=== PATIENT | male | born 1960 | race Caucasian/White ===

== ENCOUNTER 2019-07-05 16:50 | Outpatient (CLI) | payer MEDICAID, SELFPAY | END 2019-07-05 16:51 | disposition home or self-care (01) | LOC: SPT 16:51 | PROVIDERS: Visit Provider Orthopaedic Surgery | DX: Z46.89 Encounter for fitting and adjustment of other specified devices (principal); S52.531D Colles' fracture of right radius, subsequent encounter for closed fracture with routine healing; X58.XXXD Exposure to other specified factors, subsequent encounter | CPT/HCPCS: L3982 ==

== ENCOUNTER → 2019-08-02 15:23 | Outpatient (BNVA) | payer MEDICAID, SELFPAY | PROVIDERS: Visit Provider Orthopaedic Surgery | DX: S52.531A Colles' fracture of right radius, initial encounter for closed fracture (principal); X58.XXXA Exposure to other specified factors, initial encounter | CPT/HCPCS: 73110 ==

== ENCOUNTER → 2019-11-07 11:28 | Outpatient (BNVA) | payer MEDICAID, SELFPAY | PROVIDERS: Visit Provider Orthopaedic Surgery | DX: S52.531A Colles' fracture of right radius, initial encounter for closed fracture (principal); X58.XXXA Exposure to other specified factors, initial encounter | CPT/HCPCS: 73110 ==

== ENCOUNTER → 2022-01-13 11:02 | Outpatient (BNVA) | payer MEDICAID, SELFPAY | PROVIDERS: Referring Provider Family Medicine; Visit Provider Podiatrist Foot & Ankle Surgery | DX: S92.501A Displaced unspecified fracture of right lesser toe(s), initial encounter for closed fracture (principal); W22.8XXA Striking against or struck by other objects, initial encounter | CPT/HCPCS: 99203; 99204 ==

== ENCOUNTER 2023-05-22 11:16 | Inpatient (IN) | payer OTHER, SELFPAY ==
[2023-05-22] VITALS (11 sets, daily range): BP systolic 101–125; BP diastolic 67–86; PULSE 80–102; RESP 17–26; TEMP 36.5–36.7; O2SAT 88–95
[2023-05-22 11:26] LABS: Glucose Point of Care 516 mg/dL (70-110)
--- NOTE | 2023-05-22 11:27 | XRR_ITS ---
PROCEDURE INFORMATION: Exam: XR Chest Exam date and time: 05/22/2023 12:43 PM Age: 63 years old Clinical indication: Cough TECHNIQUE: Imaging protocol: Radiologic exam of the chest. Views: 1 view. COMPARISON: No relevant prior studies available. FINDINGS: Lungs: Poor inspiratory effort. No focal consolidation. Pleural spaces: Small bilateral pleural effusions. Heart/Mediastinum: Unremarkable. No cardiomegaly. Bones/joints: Moderate degenerative disease of the left acromioclavicular joint. XR/XR chest 1V portable [id number] IMPRESSION: Poor inspiratory effort with no gross consolidations. Small bilateral pleural effusion.
--- NOTE | 2023-05-22 11:30 | ED_ITS ---
HPI - General Adult 2 General: Chief complaint: General Medical Stated complaint: HYPERGLYCEMIA Time Seen by Provider: 05/22/23 11:17 Source: patient and EMS Mode of arrival: EMS Limitations: no limitations History of Present Illness: 63-year-old male who states he was recen tly diagnosed diabetic he has not been able to start his meds he states that he is not feeling well today he been having some vomiting and fatigue. Blood sugar is over 500. He denies any chest pain he has COPD and states he had a chronic cough no change. Associated symptoms: Reports dyspnea and nausea; Deny chest pain, headache(s) or rash Review of Systems 2 Const: Denies: fever(s) or chills Eyes: Denies: blurry vision or eye discomfort ENMT: Denies: throat pain or dental pain Card: Denies: chest pain Resp: Reports: dyspnea GI: Reports: nausea; Denies: abdominal pain or diarrhea Musc: Denies: neck pain or back pain Skin/Breast: Denies: rash Neuro: Denies: headache(s) PFSH ED 2 PFSH: Medical History (Updated 05/22/23 @ 13:13 by Fritz Nash MD) HIV positive Depression Anxiety PTSD (post-traumatic stress disorder) Surgical History History of hip replacement Head of Femur Replaced Family History Denies family history of Anesthesia complication Bleeding disorder Social History Smoking and tobacco/nicotine status: current every day tobacco/nicotine user Physical Exam 2 Const: COMMON NORMALS: patient oriented x3 GENERAL APPEARANCE: ill appearing HENMT: COMMON NORMALS: normocephalic and atraumatic HEAD & SCALP: n ormocephalic and atraumatic Neck/C-Spine: COMMON NORMALS: full ROM and supple Chest: COMMONS NORMALS: normal inspection of the chest and normal palpation of entire chest wall Resp: COMMON NORMALS: normal respiratory effort, No retractions, No use of accessory muscles and clear to auscultation bilaterally AUSCULTATION: clear to auscultation bilaterally Cardio: COMMON NORMALS: regular rate, regular rhythm and No murmurs present (Cardio) RATE: regular rate RHYTHM: regular rhythm GI: COMMON NORMALS: Normal to inspection, nondistended, normoactive bowel sounds present, Soft to palpation, non-tender and no masses PALPATION: Yes Soft to palpation Extremity: COMMON NORMALS: normal to inspection and full ROM Neuro: COMMON NORMALS: patient oriented x3, moves all extremities and no focal motor deficits Psych: COMMON NORMALS: mental status grossly normal, Normal thought process present and cooperative THOUGHT PROCESS: Normal thought process present Skin: COMMON NORMALS: no rashes or lesions noted and no wounds GENERAL SKIN EXAM: no rashes or lesions noted Course 2 Vital Signs: Vital signs: Vital Signs Temperature 97.8 F 05/22/23 12:29 Pulse Rate 96 05/22/23 11:59 Respiratory Rate 26 H 05/22/23 11:29 Blood Pressure 125/86 05/22/23 11:29 Pulse Oximetry 88 L 05/22/23 11:59 Oxygen Delivery Me thod Nasal Cannula 05/22/23 11:59 Oxygen Flow Rate 3 05/22/23 11:59 [facility] - General Adult Medical Decision Making Patient presents here with hyperglycemia he is a new onset diabetic he also is hypokalemic potassium is 2.4 his have replaced his potassium with p.o. and IV potassium. He has a history of COPD he is requiring 3 L of oxygen here he does not wear oxygen at home x-ray shows no pneumonia spoke to hospitalist will admit Medical Records I reviewed the patient's medical records. Lab Data I reviewed the patient's lab results. 05/22/23 11:22 05/22/23 11:22 Laboratory Results WBC 3.68 10^3/uL (3.29-11.43) 05/22/23 11:22 RBC 4.87 10^6/uL (3.85-5.65) 05/22/23 11:22 Hgb 15.00 g/dL (11.27-16.99) 05/22/23 11:22 Hct 40.4 % (37-53) 05/22/23 11:22 MCV 83.0 fl (82-101) 05/22/23 11:22 MCH 30.8 pg (27-33) 05/22/23 11:22 MCHC 37.1 g/dL (30-55) 05/22/23 11:22 RDW 11.8 % (12.1-15.1) L 05/22/23 11:22 Plt Count 101 10^3/cmm (157-399) L 05/22/23 11:22 MPV 12.1 fL (7.4-10.4) H 05/22/23 11:22 Neut % (Auto) 85.6 % 05/22/23 11:22 Lymph % (Auto) 6.3 % 05/22/23 11:22 Luce % (Auto) 5.4 % 05/22/23 11:22 Eos % (Auto) 0.3 % 05/22/23 11:22 Baso % (Auto) 0.5 % 05/22/23 11:22 Neut # (Auto) 3.15 10^3/uL (1.8-7.7) 05/22/23 11:22 Lymph # (Auto) 0.2 10^3/uL (0.8-4.8) L 05/22/23 11:22 Luce # (Auto) 0.2 10^3/uL (0.2-0.9) 05/22/23 11:22 Eos # (Auto) 0.0 10^3/uL (0.0-0.8) 05/22/23 11:22 Baso # (Auto) 0.0 10^3/uL (0.0-0.1) 05/22/23 11:22 Nucleated RBC % (auto) 0 % 05/22/23 11:22 Nucleated RBCs # 0.0 /100WBC 05/22/23 11:22 Specimen Type Arterial 05/22/23 11:48 Sample Site Radial, left 05/22/23 11:48 ABG pH 7.47 (7.35-7.45) H 05/22/23 11:48 ABG pCO2 42.2 mmHg (35-45) 05/22/23 11:48 ABG pO2 50.8 mmHg (80.0-100.0) L 05/22/23 11:48 ABG PO2/FiO2 Ratio 0 05/22/23 11:48 ABG HCO3 30.7 mmol/L (22-26) H 05/22/23 11:48 ABG Base Excess 6.3 mmol/L (-2.0-2.0) H 05/22/23 11:48 Alec Test Pos 05/22/23 11:48 Hematocrit 43.3 % (42-52) 05/22/23 11:48 O2 Delivery Device Room air 05/22/23 11:48 FiO2 21.0 % 05/22/23 11:48 Skills Auditor ID Maria Luisa 05/22/23 11:48 Sodium 125 mmol/L (136-145) L 05/22/23 11:22 Potassium 2.4 mmol/L (3.5-5.1) L* 05/22/23 11:22 Chloride 81 mmol/L (98-107) L 05/22/23 11:22 Carbon Dioxide 28 mmol/L (22-29) 05/22/23 11:22 Anion Gap 18.4 (5-19) 05/22/23 11:22 BUN 21 mg/dL (8-23) 05/22/23 11:22 Creatinine 1.3 mg/dL (0.7-1.2) H 05/22/23 11:22 GFR Calculation 56.1 mL/min (90-130) L 05/22/23 11:22 Glucose 501 mg/dL (65-115) H* 05/22/23 11:22 POC Glucose 277 mg/dL (70-110) H 05/22/23 12:26 Calculated Osmolality 285 mOsm/kg (285-295) 05/22/23 11:22 Calcium 8.1 mg/dL (8.5-10.5) L 05/22/23 11:22 Total Bilirubin 1.9 mg/dL (0.15-1.2) H 05/22/23 11:22 AST 37 U/L (0-40) 05/22/23 11:22 ALT 53 U/L (0-41) H 05/22/23 11:22 Alkaline Phosphatase 216 U/L (40-130) H 05/22/23 11:22 Total Protein 6.7 g/dL (6.6-8.7) 05/22/23 11:22 Albumin 3.5 g/dL (3.5-5.2) 05/22/23 11:22 Globulin 3.2 g/dL (1.3-4.6) 05/22/23 11:22 Lipase 17 U/L (13-60) 05/22/23 11:22 All radiology interpretation(s) finalized by discharge Discharge Plan Discharge Patient Disposition: Admitted As Inpatient Clinical Impression: Hypokalemia, Hyperglycemia, Acute respiratory failure with hypoxia Condition: Stable Prescriptions: No Action Biktarvy 50-200-25 mg tablet 1 tab PO QAM omeprazole 40 mg capsule,delayed release(DR/EC) 40 mg PO QAM (DME) Fast Form cock up splint Qty: 1 0RF Rx Instructions: As directed atorvastatin 80 mg tablet 80 mg PO BEDTIME clopidogrel 75 mg tablet 75 mg PO QAM Tylenol Ex Str Rapid Release 500 mg Tablet 1,000 mg PO Q6H PRN (Reason: Pain) amlodipine 10 mg tablet 10 mg PO QAM aspirin 81 mg tablet,chewable 81 mg PO QAM hydrochlorothiazide 25 mg tablet 25 mg PO QAM colchicine 0.6 mg tablet 0.6 mg PO . DIRECTED metformin 500 mg tablet extended release 24 hr 500 mg PO DAILY Rx Instructions: not started as of 05/22/23 Stiolto Respimat 2.5-2.5 mcg/actuation mist 2 puff INHALATION BEDTIME Coding Level of Care Code ED [address] Service for Mykel Rodriguez
[2023-05-22] MEDS: insulin regular-human 100 units/1 mL 10 UNIT IVP (11:37)
[2023-05-22 11:40] LABS: Basophils % 0.5 %; Eosinophils % 0.3 %; Hematocrit 40.4 % (37-53); Lymphocytes # 0.2 10^3/uL (0.8-4.8); Lymphocytes % 6.3 %; Mean Corpuscular HGB Conc 37.1 g/dL (30-55); Mean Corpuscular Hemoglobin 30.8 pg (27-33); Mean Platelet Volume 12.1 fL (7.4-10.4); Monocytes # 0.2 10^3/uL (0.2-0.9); Monocytes % 5.4 %; Neutrophils # 3.15 10^3/uL (1.8-7.7); Neutrophils % 85.6 %; Nucleated Red Blood Cells % 0 %; Platelet Count 101 10^3/cmm (157-399); Red Blood Count 4.87 10^6/uL (3.85-5.65); Red Cell Distribution Width 11.8 % (12.1-15.1); White Blood Count 3.68 10^3/uL (3.29-11.43)
[2023-05-22 11:51] LABS: Alanine Aminotransferase 53 U/L (0-41); Albumin Level 3.5 g/dL (3.5-5.2); Alkaline Phosphatase 216 U/L (40-130); Anion Gap 18.4 (5-19); Aspartate Amino Transferase 37 U/L (0-40); Blood Urea Nitrogen 21 mg/dL (8-23); Calcium 8.1 mg/dL (8.5-10.5); Carbon Dioxide 28 mmol/L (22-29); Chloride 81 mmol/L (98-107); Globulin 3.2 g/dL (1.3-4.6); Glomerular Filtration Rate 56.1 mL/min (90-130); Lipase 17 U/L (13-60); Osmolality Calculated 285 mOsm/kg (285-295); Sodium 125 mmol/L (136-145); Total Bilirubin 1.9 mg/dL (0.15-1.2); Total Protein 6.7 g/dL (6.6-8.7)
[2023-05-22 11:52] LABS: Creatinine Clr Calc Pharmacy 72.2215
[2023-05-22 11:54] LABS: Glucose 501 mg/dL (65-115); Potassium 2.4 mmol/L (3.5-5.1)
[2023-05-22 11:59] LABS: ABG PCO2 42.2 mmHg (35-45); ABG PH Result 7.47 (7.35-7.45); Arterial Blood Gas Hematocrit 43.3 % (42-52); Base Excess ABG 6.3 mmol/L (-2.0-2.0); Blood Gas Allen Test Pos; Blood Gas Operator Identificat WALCI; Blood Gas Sample Site Radial, left; Blood Gas Sample Type Arterial; HCO3 ABG 30.7 mmol/L (22-26); Oxygen Device ROOM AIR; PO2 ABG 50.8 mmHg (80.0-100.0); PO2 FiO2 Ratio Arterial Blood 0
[2023-05-22] MEDS: potassium chloride ER 20 mEq Tablet 60 MEQ PO (12:21)
[2023-05-22 12:30] LABS: Glucose Point of Care 277 mg/dL (70-110)
--- NOTE | 2023-05-22 12:46 | PC.PHAR ---
pt states he takes care of his own medications-pt states he hasnt started taking metformin er 500mg daily ext shows filled 05/18/23 90d/s-pt states he hasnt gotten the colchicine 0.6mg filled 05/20/23 12d/s states there was problems with the insurance-pt states he is still using the stiolto respimat ext shows last filled 03/08/23 30d/s-
[2023-05-22] MEDS: potassium phosphate (mEq K) 40 MEQ in sodium chloride 0.9% (100 ml) 100 ML 27.2699999999999996 MEQ IV (12:50)
--- NOTE | 2023-05-22 13:06 | P.HP_ITS ---
Providers/Chief Complaint 2 Primary Care Provider: Hedy Lopez Chief Complaint: HYPERGLYCEMIA History of Present Illness Francisco Barlow is a 63 year old male who was recently diagnosed with diabetes, a day ago at [facility], patient stating that [place], he has not received his antihyperglycemic medication yet, presented to the hospital because he was experiencing recurrent nausea vomiting generalized fatigue and malaise. Because excessive vomiting he is starting to get cramps in his abdominal area, is also experiencing pleuritic pain, pain which gets worse on coughing. Smokes 1 pack/day, drinks alcohol 1 drink a day, patient stating that he has history of aortic aneurysm follows up at [facility], his PCP is Dr. Lopez In the ER he has been diagnosed with max, severe hypokalemia, hyperglycemia, hyponatremia, patient has unkept appearance, foul-smelling room, his last shower was a week ago, Review of Systems 2 Const: Denies: fever(s) Eyes: Denies: change in vision ENMT: Denies: throat pain Card: Denies: chest pain Resp: Denies: dyspnea GI: Denies: abdominal pain : Denies: flank pain Musc: Denies: neck pain Skin/Breast: Denies: rash Neuro: Denies: headache(s) Psych: Denies: anxiety Endo: Denies: polyuria Parveen/Lymph: Denies: easy bruising All/Imm: Denies: urticaria Medications/Allergies Home Medications Medication Instructions Recorded Confirmed Last Taken Type Fast Form cock up splint #1 ea 07/05/19 05/22/23 Unknown Rx bictegravir 50 mg-emtricitabine 1 tab PO QAM 10/03/19 05/22/23 05/20/23 History 200 mg-tenofovir alafenam 25 mg tablet (Biktarvy) omeprazole 40 mg capsule,delayed 40 mg PO QAM 10/03/19 05/22/23 05/20/23 History release acetaminophen 500 mg tablet 1,000 mg PO Q6H PRN Pain 05/22/23 05/22/23 Unknown History amlodipine 10 mg tablet 10 mg PO QAM 05/22/23 05/22/23 05/20/23 History aspirin 81 mg chewable tablet 81 mg PO QAM 05/22/23 05/22/23 05/20/23 History atorvastatin 80 mg tablet 80 mg PO BEDTIME 05/22/23 05/22/23 05/20/23 History clopidogrel 75 mg tablet 75 mg PO QAM 05/22/23 05/22/23 05/20/23 History colchicine 0.6 mg tablet 0.6 mg PO . DIRECTED 05/22/23 05/22/23 Unknown History hydrochlorothiazide 25 mg tablet 25 mg PO QAM 05/22/23 05/22/23 05/20/23 History metformin 500 mg tablet,extended 500 mg PO DAILY 05/22/23 05/22/23 Unknown History release 24 hr tiotropium 2.5 mcg-olodaterol 2.5 2 puff inhalation BEDTIME 05/22/23 05/22/23 Unknown History mcg/actuation mist for inhalation (Stiolto Respimat) Allergies Allergy/AdvReac Type Severity Reaction Status Date / Time iodine Allergy Severe Anaphylaxis Verified 01/13/22 11:15 PFSH Acute 2 PFSH: Medical History (Updated 05/22/23 @ 13:38 by Gentry Avila MD) HIV positive Depression Anxiety PTSD (post-traumatic stress disorder) Surgical History History of hip replacement Head of Femur Replaced Family History Denies family history of Anesthesia complication Bleeding disorder Social History Smoking and tobacco/nicotine status: current every day tobacco/nicotine user Vitals/I&O/Wt Last Vital Signs Temp 97.8 F 05/22/23 12:29 Pulse 96 05/22/23 11:59 Resp 26 H 05/22/23 11:29 BP 125/86 05/22/23 11:29 Pulse Ox 88 L 05/22/23 11:59 O2 Del Method Nasal Cannula 05/22/23 11:59 O2 Flow Rate 3 05/22/23 11:59 Weight last 48 hrs Weight 97.522 kg Physical Exam 2 Narrative: Disabled appearance Unkept appearance Foul-smelling wound Patient is on 2 L nasal cannula Saturating 94% Abdomen distended, no active signs of peritonitis S1, S2 GCS 15 Nonfocal neuroexam Data 05/22/23 11:22 05/22/23 11:22 A&P Assessment and plan (1) Hyperglycemia: (2) GERD (gastroesophageal reflux disease): (3) Hypokalemia: (4) Hyponatremia: (5) Dehydration: (6) New onset of congestive heart failure: Plan Hyperglycemia without DKA Start IV fluids with potassium supplementation Severe hypokalemia: IV potassium given in the ER I will continue with IV fluids Check mag level Check B12 and TSH Check A1c level I will put him on medium dose sliding scale along Lantus 10 units When asked why he is on dual antiplatelet therapy he stated that he has aortic aneurysm follows up at [facility] Patient is stating that he lives off grid in a cabin, Hopefully I will be able to discharge him by tomorrow once blood sugar and potassium is well-controlled Pseudohyponatremia related to hyperglycemia No active acidosis or high anion gap Acute hypoxia most likely new onset CHF, will request BNP and echo will hold off giving Lasix secondary to severely low potassium Recheck BMP for potassium level Full code Consistent carb diet Wean oxygen to room air Attestations 2 Medical Necessity Statement*: Than 2 midnights anticipated for management of new onset CHF, hyperglycemia, hyponatremia, hypokalemia Diagnoses Hyperglycemia R73.9 GERD (gastroesophageal reflux disease) K21.9 Hypokalemia E87.6 Hyponatremia E87.1 Dehydration E86.0 New onset of congestive heart failure I50.9
--- NOTE | 2023-05-22 13:21 | ECG_ITS ---
[facility] Test Date: 2023-05-22 Pat Name: Francisco Barlow Department: Room: Gender: Male Assistant Attorney General: : 1960 Requested By: Fritz Nash Order Number: [id number] Shilpa MD: Ramsey Mendoza M.D. Measurements Intervals [place] Rate: 87 P: 60 WV: 156 QRS: 9 QRSD: 94 T: 53 QT: 402 QTc: 486 Interpretive Statements SINUS RHYTHM No previous ECG available for comparison Electronically Signed On 05-23-2023 8:48:22 DRIVER ENGINEER by Ramsey Mendoza M.D. [id number]
[2023-05-22] MEDS: ipratropium-albuterol 3 mL Neb INHALATION (13:29)
[2023-05-22 14:00] LABS: Magnesium 1.5 mg/dL (1.7-2.3)
[2023-05-22 14:32] LABS: NT Pro B Type Natriuretic Pept 794 pg/mL (0-125)
--- NOTE | 2023-05-22 14:45 | ECG_ITS ---
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 Measurements Intervals [place] Rate: 87 P: 4 NV: 172 QRS: 1 QRSD: 92 T: 30 QT: 410 QTc: 494 Interpretive Statements SINUS RHYTHM Compared to ECG 05/22/2023 13:21:35 No significant changes Electronically Signed On 05-23-2023 9:36:51 DIRECTOR ENVIRONMENTAL by Ramsey Mendoza M.D. [id number]
[2023-05-22 15:44] LABS: Thyroid Stimulating Hormone 3.93 uIU/mL (0.27-4.20); Vitamin B12 652 pg/mL (232-1245)
[2023-05-22 16:04] LABS: Estmated Average Glucose 283; Hemoglobin A1C 11.5 % (4.0-6.0)
[2023-05-22 16:32] LABS: Glucose Point of Care 459 mg/dL (70-110)
[2023-05-22] MEDS: NON-FORMULARY MEDICATION (Bictegrav-Emtricit-Tenofov Ala [Biktarvy] 50-200-25 mg tablet) 1 EACH PO (18:03)
[2023-05-22] MEDS: insulin lispro 100 unit/1 mL SUBCUT ×2 (18:04→22:08)
[2023-05-22] MEDS: atorvastatin 40 mg Tablet 80 MG PO (20:07)
[2023-05-22] MEDS: acetaminophen 500 mg Tablet PO (20:07)
[2023-05-22] MEDS: insulin glargine 100 units/1 mL 10 UNIT SUBCUT (20:39)
[2023-05-22 20:43] LABS: Glucose Point of Care 504 mg/dL (70-110)
[2023-05-22] MEDS: morphine 4 mg/mL SDV 1 mL 2 MG IVP (21:31)
[2023-05-22] MEDS: magnesium sulfate premix 2 GM/50 ML PIGGYBACK IV (21:31)
[2023-05-22] MEDS: pantoprazole 40 mg SDV IVP (21:31)
[2023-05-22 22:00] LABS: Glucose Point of Care 480 mg/dL (70-110)
[2023-05-23] VITALS (11 sets, daily range): BP systolic 99–143; BP diastolic 66–89; PULSE 68–88; RESP 16–20; TEMP 36.6–36.8; O2SAT 87–94
[2023-05-23 03:27] LABS: Basophils % 0.5 %; Eosinophils # 0.1 10^3/uL (0.0-0.8); Eosinophils % 2.1 %; Hematocrit 36.9 % (37-53); Lymphocytes # 0.9 10^3/uL (0.8-4.8); Lymphocytes % 15.5 %; Mean Corpuscular HGB Conc 34.7 g/dL (30-55); Mean Corpuscular Hemoglobin 30.2 pg (27-33); Mean Platelet Volume 12.5 fL (7.4-10.4); Monocytes # 0.7 10^3/uL (0.2-0.9); Monocytes % 12.7 %; Neutrophils # 3.91 10^3/uL (1.8-7.7); Neutrophils % 68.3 %; Nucleated Red Blood Cells % 0 %; Platelet Count 73 10^3/cmm (157-399); Red Blood Count 4.24 10^6/uL (3.85-5.65); Red Cell Distribution Width 12.2 % (12.1-15.1); White Blood Count 5.73 10^3/uL (3.29-11.43)
[2023-05-23 03:45] LABS: Blood Urea Nitrogen 23 mg/dL (8-23); Calcium 7.6 mg/dL (8.5-10.5); Carbon Dioxide 31 mmol/L (22-29); Chloride 92 mmol/L (98-107); Glucose 247 mg/dL (65-115); Magnesium 2.3 mg/dL (1.7-2.3); Osmolality Calculated 282 mOsm/kg (285-295); Phosphorus 1.2 mg/dL (2.5-4.5); Sodium 130 mmol/L (136-145)
[2023-05-23 03:49] LABS: Anion Gap 9.8 (5-19)
[2023-05-23 03:51] LABS: Potassium 2.8 mmol/L (3.5-5.1)
--- NOTE | 2023-05-23 04:52 | PC.NURSE ---
Contacted Dr. Griffin regarding order for K+ phosphate, and unavailability to administer until pharmacy gets here to mix the iv. Physician stated it would be ok to await pharmacy arrival to mix K+ phosphate, and to administer PO K+ at this time. supervisor laboratory notified.
[2023-05-23] MEDS: NON-FORMULARY MEDICATION (Bictegrav-Emtricit-Tenofov Ala [Biktarvy] 50-200-25 mg tablet) 1 EACH PO (05:46)
[2023-05-23] MEDS: potassium chloride ER 20 mEq Tablet 40 MEQ PO ×2 (05:47→17:32)
[2023-05-23] MEDS: aspirin 81 mg Chew Tablet PO (05:47)
--- NOTE | 2023-05-23 06:00 | USCV_ITS ---
Francisco Barlow Age: 63 Gender: M : 1960 Exam Date: 05/23/2023 17:56 Ordering Phys: Gentry Avila MD Technologist: JUSTICE [place] [facility] [place]: order says CHF No history of cardiac intervention per patient. Long-term smoker, continues smoking. BP: 143 / 89 HR: 74 Rhythm: Sinus Technical Quality: Adequate MEASUREMENTS (Male / Female) Normal Values 2D ECHO LV Diastolic Diameter PLAX 4.3 cm 4.2 - 5.9 / 3.9 - 5.3 cm IVS Diastolic Thickness 2.1 cm 0.6 - 1.0 / 0.6 - 0.9 cm IVS Systolic Thickness 2.6 cm LVPW Diastolic Thickness 1.6 cm 0.6 - 1.0 / 0.6 - 0.9 cm LVPW Systolic Thickness 1.8 cm LVOT Diameter 2.0 cm LV Ejection Fraction 2D Teich 76.2 % LV Ejection Fraction MOD 2C 73.3 % LV Ejection Fraction 2C AL 0.0 % LA Diameter 3.0 cm Aorta at Sinotubular Diameter 2.6 cm IVC Diameter 2.6 cm M-MODE LA Ao Ratio MM 0.8 AV Cusp Separation MM 2.0 cm DOPPLER AV Peak Velocity 126.0 cm/s LVOT Peak Velocity 109.0 cm/s AV Area Cont Eq vti 4.0 cm squared AV Area Cont Eq pk 2.9 cm squared MV Peak Velocity 99.0 cm/s MV Area PHT 6.2 cm squared Mitral E to A Ratio 0.8 TV Peak E Velocity 39.0 cm/s PV Peak Velocity 92.0 cm/s FINDINGS Left Ventricle Normal left ventricular size and systolic function, EF 76%.no regional wall motion abnormalities. Mild left ventricular hypertrophy. Grade I/IV diastolic dysfunction (abnormal relaxation filling pattern), normal to mildly elevated filling pressures. Right Ventricle The right ventricle is normal in size and function. Right Atrium The right atrium is normal in size. Left Atrium The left atrium is normal in size. Mitral Valve No gross abnormalities noted Aortic Valve No gross abnormalities noted Tricuspid Valve No gross abnormalities noted Pulmonic Valve No gross abnormalities noted Pericardium Normal pericardium without effusion. Aorta Normal ascending aorta dimension. IVC The inferior vena cava appears normal. CONCLUSIONS Normal left ventricular size and systolic function, EF 76%.no regional wall motion abnormalities. Mild left ventricular hypertrophy. Grade I/IV diastolic dysfunction (abnormal relaxation filling pattern), normal to mildly elevated filling pressures. Normal cardiac chamber sizes. No significant valvular abnormalities. There is no pericardial effusion. There are no intracardiac masses. No similar previous studies are available for comparison Dr Linda Alvares MD FACC (Electronically Signed) Final Date: 23 May 2023 20:14 S
[2023-05-23 06:19] LABS: Glucose Point of Care 407 mg/dL (70-110)
[2023-05-23] MEDS: potassium phosphate (mEq K) 40 MEQ in sodium chloride 0.9% (100 ml) 100 ML 27.2699999999999996 MEQ IV (07:05)
[2023-05-23] MEDS: insulin lispro 100 unit/1 mL SUBCUT ×4 (07:49→21:16)
[2023-05-23] MEDS: pantoprazole 40 mg SDV IVP (08:55)
[2023-05-23 09:23] LABS: Creatine Phosphokinase 259 U/L (39-308)
[2023-05-23 09:33] LABS: Potassium 2.8 mmol/L (3.5-5.1)
[2023-05-23] MEDS: acetaminophen 500 mg Tablet PO ×2 (10:41→20:18)
[2023-05-23 11:21] LABS: Glucose Point of Care 256 mg/dL (70-110)
--- NOTE | 2023-05-23 11:33 | PC.CHAP ---
Pastoral Care Encounter/Spiritual Assessment Type of Contact [] Declined airport ramp supervisor visit [] Patient/Family/Request visit [] Outpatient visit [] Follow-up visit [] Physician referral [] Code/Alert [x] Routine visit [] Staff referral [] Actively dying [x] Patient sleeping [] Family support [] [] Out of room [] Palliative care [] [] Receiving care in room [] Pre-surgical visit [] Trauma [] Long length of stay [] ICU visit [] Other: Relational/Emotional Strength [] Patient feels connected with others/family/visitors/staff [] Distress [] Loneliness/isolation [] Abandonment Spirituality of Patient [] Person of Jennifer [] Attends Latter-Day of their Jennifer [] Believes in Prayer [] Reads Bible or Hindu materials [] There are Spiritual issues to be addressed Video Machines Mechanic Interventions [x] Prayer [] Active listening [] Non-anxious presence [] Spiritual/emotional support [] Crisis/trauma care [] Spiritual counseling [] Bereavement support [] Provided bereavement packet [] Provided Bible/devotional materials [] Provided toy/stuffed animal, coloring book to patient or family member [] Provided Communion [] Anointing/[place] [] Salvation [x] Completed spiritual assessment [] Other: Impact on Illness or Injury [] Angry [] Fearful [] Anxious [] Often cries [] Exhaustion [] Unable to work [] Unable to attend holiness [] Unable to walk/stand [] Unable to read [] Unable to drive [] Unable to eat/drink [] Unable to sleep [] Unable to be with family [] Patient intubated [] Other: Summary Time spent with patient none
--- NOTE | 2023-05-23 12:09 | P.PN_ITS ---
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 updated Will do meds to beds Will wait for echo report Vitals/I&O/Wt Last Vital Signs Temp 98.2 F 05/23/23 11:47 Pulse 74 05/23/23 11:47 Resp 16 05/23/23 11:47 BP 101/67 05/23/23 11:47 Pulse Ox 91 05/23/23 11:47 O2 Del Method Room Air 05/23/23 11:47 O2 Flow Rate 3 05/22/23 15:35 05/22/23 05/23/23 05/23/23 22:59 06:59 14:59 Intake Total 398.5106 / 398.5106 200 / 598.5106 480 / 480 Output Total 600 / 600 350 / 950 Balance -201.4894 / -201.4894 -150 / -351.4894 480 / 480 Weight last 48 hrs Weight 96.162 kg Weight 97.522 kg Physical Exam 2 Narrative: Clinical signs of fluid overload Distended abdomen no severe signs of peritonitis Hypogastric region tenderness on deep palpation Awake and alert S1, S2 Currently on room air Hemodynamically stable Signs of fluid overload present Unkept appearance Data 05/23/23 02:31 05/23/23 08:47 A&P Assessment and plan (1) New onset of congestive heart failure: (2) Hyperglycemia: (3) GERD (gastroesophageal reflux disease): (4) Hypokalemia: (5) Dehydration: (6) New onset type 2 diabetes mellitus: Plan New onset diabetes we will add Lantus and medium sliding scale Will increase the dose of Lantus to 20 units Hemoglobin A1c above 10 New onset CHF Echo report is pending Further plan will be made after reviewing echo report Continue Lasix Severe electrolyte imbalance Hypomagnesemia hypophosphatemia Replenished via IV Monitor for refeeding syndrome: No significant CPK elevation Severe hypokalemia along phosphorus replenished today Magnesium is normal Normal B12 and TSH No active chest pain Patient is HIV positive continue medications Hyponatremia: Patient is fluid overloaded, drinks alcohol, discontinue hydrochlorothiazide from home medications Full code Attestations 2 Medical Necessity Statement*: Plan to discharge in next 24 to 48 hours for the plan will be made after reviewing echo report Diagnoses New onset of congestive heart failure I50.9 Hyperglycemia R73.9 GERD (gastroesophageal reflux disease) K21.9 Hypokalemia E87.6 Dehydration E86.0 New onset type 2 diabetes mellitus E11.9
[2023-05-23] MEDS: FUROsemide 10 mg/mL SDV 2mL 20 MG IVP (13:53)
[2023-05-23 14:04] LABS: Alanine Aminotransferase 60 U/L (0-41); Albumin Level 2.9 g/dL (3.5-5.2); Alkaline Phosphatase 103 U/L (40-130); Aspartate Amino Transferase 61 U/L (0-40); Blood Urea Nitrogen 21 mg/dL (8-23); Calcium 7.5 mg/dL (8.5-10.5); Carbon Dioxide 29 mmol/L (22-29); Chloride 96 mmol/L (98-107); Creatinine Clr Calc Pharmacy 84.8101; Globulin 2.7 g/dL (1.3-4.6); Glomerular Filtration Rate 68.1 mL/min (90-130); Glucose 310 mg/dL (65-115); Osmolality Calculated 297 mOsm/kg (285-295); Sodium 136 mmol/L (136-145); Total Bilirubin 0.9 mg/dL (0.15-1.2); Total Protein 5.6 g/dL (6.6-8.7)
[2023-05-23 16:47] LABS: Glucose Point of Care 294 mg/dL (70-110)
[2023-05-23 20:59] LABS: Glucose Point of Care 256 mg/dL (70-110)
[2023-05-23] MEDS: insulin glargine 100 units/1 mL 20 UNIT SUBCUT (21:15)
[2023-05-23] MEDS: atorvastatin 40 mg Tablet 80 MG PO (21:16)
[2023-05-24 00:41] VITALS: BP 100/68; PULSE 75; RESP 19; TEMP 36.8; O2SAT 91
[2023-05-24 03:54] VITALS: BP 95/62; PULSE 79; RESP 18; TEMP 36.7; O2SAT 90
[2023-05-24] MEDS: aspirin 81 mg Chew Tablet PO (05:44)
[2023-05-24 06:00] VITALS: PULSE 81
[2023-05-24 06:04] LABS: Basophils % 0.8 %; Eosinophils # 0.1 10^3/uL (0.0-0.8); Eosinophils % 2.1 %; Hematocrit 36.9 % (37-53); Lymphocytes # 0.8 10^3/uL (0.8-4.8); Lymphocytes % 20.4 %; Mean Corpuscular HGB Conc 35.5 g/dL (30-55); Mean Corpuscular Hemoglobin 30.5 pg (27-33); Mean Platelet Volume 11.8 fL (7.4-10.4); Monocytes # 0.6 10^3/uL (0.2-0.9); Monocytes % 16.9 %; Neutrophils # 2.21 10^3/uL (1.8-7.7); Neutrophils % 59.3 %; Nucleated Red Blood Cells % 0 %; Platelet Count 115 10^3/cmm (157-399); Red Blood Count 4.29 10^6/uL (3.85-5.65); Red Cell Distribution Width 12.3 % (12.1-15.1); White Blood Count 3.73 10^3/uL (3.29-11.43)
[2023-05-24 06:22] LABS: Glucose Point of Care 234 mg/dL (70-110)
[2023-05-24 06:30] LABS: Slide Review Slide Review Perform
[2023-05-24 06:32] LABS: Magnesium 1.7 mg/dL (1.7-2.3); Phosphorus 2.3 mg/dL (2.5-4.5)
[2023-05-24 07:23] VITALS: BP 105/62; PULSE 68; RESP 18; O2SAT 93
[2023-05-24 07:43] VITALS: PULSE 68; RESP 18; O2SAT 93
[2023-05-24] MEDS: potassium chloride ER 20 mEq Tablet 40 MEQ PO (08:46)
[2023-05-24] MEDS: insulin lispro 100 unit/1 mL SUBCUT (08:46)
[2023-05-24] MEDS: pantoprazole 40 mg SDV IVP (08:46)
--- NOTE | 2023-05-24 10:50 | P.DS_ITS ---
Discharge Providers Date of Admission: 05/22/23 15:01 Date of Discharge: May 24, 2023 Attending Provider at Admission: Latisha Rabago MD Attending Provider at Discharge: Gentry Avila MD Primary Care Provider: Hedy Lopez Diagnoses at Discharge Discharge Diagnosis (1) New onset of congestive heart failure: Status: Acute (2) Hyperglycemia: Status: Acute (3) GERD (gastroesophageal reflux disease): Status: Acute (4) Hypokalemia: Status: Acute (5) Dehydration: Status: Acute (6) New onset type 2 diabetes mellitus: Status: Acute Reason for Visit Reason for Visit: HYPERGLYCEMIA Hospital Course Hospital Course 63-year male who presented to the hospital for hyperglycemia and generalized weakness and fatigue patient was diagnosed with diabetes recently 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 His symptoms improved, Will prescribe him all the medications to our pharmacy to avoid relapse in his medication, Physical Exam Narrative: Awake and alert GCS 15 Sign of fluid load improving Pleasant cooperative Abdomen distended but nontender Currently on room air Normotensive Discharge Data Studies Completed and Pending Completed Studies During Hospitalization Category Date Time Status XR chest 1V portable [id number] Stat Exams 05/22/23 11:27 Completed CV. echo complete* [id number] Routine Ultrasound 05/23/23 06:00 Completed Radiology Impressions Chest X-Ray 05/22/23 11:27 IMPRESSION: Poor inspiratory effort with no gross consolidations. Small bilateral pleural effusion. Laboratory Results WBC 3.73 10^3/uL (3.29-11.43) 05/24/23 05:10 RBC 4.29 10^6/uL (3.85-5.65) 05/24/23 05:10 Hgb 13.10 g/dL (11.27-16.99) 05/24/23 05:10 Hct 36.9 % (37-53) L 05/24/23 05:10 MCV 86.0 fl (82-101) 05/24/23 05:10 MCH 30.5 pg (27-33) 05/24/23 05:10 MCHC 35.5 g/dL (30-55) 05/24/23 05:10 RDW 12.3 % (12.1-15.1) 05/24/23 05:10 Plt Count 115 10^3/cmm (157-399) L D 05/24/23 05:10 MPV 11.8 fL (7.4-10.4) H 05/24/23 05:10 Neut % (Auto) 59.3 % 05/24/23 05:10 Lymph % (Auto) 20.4 % 05/24/23 05:10 [place] % (Auto) 16.9 % 05/24/23 05:10 Eos % (Auto) 2.1 % 05/24/23 05:10 Baso % (Auto) 0.8 % 05/24/23 05:10 Neut # (Auto) 2.21 10^3/uL (1.8-7.7) 05/24/23 05:10 Lymph # (Auto) 0.8 10^3/uL (0.8-4.8) 05/24/23 05:10 [place] # (Auto) 0.6 10^3/uL (0.2-0.9) 05/24/23 05:10 Eos # (Auto) 0.1 10^3/uL (0.0-0.8) 05/24/23 05:10 Baso # (Auto) 0.0 10^3/uL (0.0-0.1) 05/24/23 05:10 Nucleated RBC % (auto) 0 % 05/24/23 05:10 Nucleated RBCs # 0.0 /100WBC 05/24/23 05:10 Specimen Type Arterial 05/22/23 11:48 Sample Site Radial, left 05/22/23 11:48 ABG pH 7.47 (7.35-7.45) H 05/22/23 11:48 ABG pCO2 42.2 mmHg (35-45) 05/22/23 11:48 ABG pO2 50.8 mmHg (80.0-100.0) L 05/22/23 11:48 ABG PO2/FiO2 Ratio 0 05/22/23 11:48 ABG HCO3 30.7 mmol/L (22-26) H 05/22/23 11:48 ABG Base Excess 6.3 mmol/L (-2.0-2.0) H 05/22/23 11:48 Alec Test Pos 05/22/23 11:48 Hematocrit 43.3 % (42-52) 05/22/23 11:48 O2 Delivery Device Room air 05/22/23 11:48 FiO2 21.0 % 05/22/23 11:48 Stenographer Secretary ID [place] 05/22/23 11:48 Sodium 136 mmol/L (136-145) 05/23/23 13:32 Potassium 3.0 mmol/L (3.5-5.1) L 05/23/23 13:32 Chloride 96 mmol/L (98-107) L 05/23/23 13:32 Carbon Dioxide 29 mmol/L (22-29) 05/23/23 13:32 Anion Gap 14.0 (5-19) 05/23/23 13:32 BUN 21 mg/dL (8-23) 05/23/23 13:32 Creatinine 1.1 mg/dL (0.7-1.2) 05/23/23 13:32 GFR Calculation 68.1 mL/min (90-130) L 05/23/23 13:32 Glucose 310 mg/dL (65-115) H 05/23/23 13:32 POC Glucose 234 mg/dL (70-110) H 05/24/23 06:16 Estimat Average Glucose 283 05/22/23 11:22 Hemoglobin A1c 11.5 % (4.0-6.0) H 05/22/23 11:22 Calculated Osmolality 297 mOsm/kg (285-295) H 05/23/23 13:32 Calcium 7.5 mg/dL (8.5-10.5) L 05/23/23 13:32 Phosphorus 2.3 mg/dL (2.5-4.5) L 05/24/23 05:10 Magnesium 1.7 mg/dL (1.7-2.3) 05/24/23 05:10 Total Bilirubin 0.9 mg/dL (0.15-1.2) 05/23/23 13:32 AST 61 U/L (0-40) H 05/23/23 13:32 ALT 60 U/L (0-41) H 05/23/23 13:32 Alkaline Phosphatase 103 U/L (40-130) 05/23/23 13:32 Creatine Kinase 259 U/L (39-308) 05/23/23 08:47 C-Reactive Protein 200.0 mg/L (0.0-4.9) H 05/23/23 02:31 NT-Pro-B Natriuret Pep 794 pg/mL (0-125) H 05/22/23 13:29 Total Protein 5.6 g/dL (6.6-8.7) L 05/23/23 13:32 Albumin 2.9 g/dL (3.5-5.2) L 05/23/23 13:32 Globulin 2.7 g/dL (1.3-4.6) 05/23/23 13:32 Lipase 17 U/L (13-60) 05/22/23 11:22 Vitamin B12 652 pg/mL (232-1245) 05/22/23 13:29 Procalcitonin 19.20 ng/mL (0-0.5) H 05/22/23 13:29 TSH 3.93 uIU/mL (0.27-4.20) 05/22/23 13:29 Vitals Last Vital Signs Temp 98.1 F 05/24/23 03:54 Pulse 68 05/24/23 07:43 Resp 18 05/24/23 07:43 BP 105/62 05/24/23 07:23 Pulse Ox 93 05/24/23 07:43 O2 Del Method Room Air 05/24/23 07:43 O2 Flow Rate 3 05/22/23 15:35 Discharge Plan Discharge Patient Disposition: Home Condition: Stable Prescriptions: New Lasix 20 mg tablet 20 mg PO DAILY Qty: 60 2RF potassium chloride 10 mEq tablet,ER particles/crystals 10 meq PO DAILY Qty: 60 3RF magnesium 200 mg tablet 200 mg PO DAILY Qty: 30 0RF insulin glargine [Lantus U-100 Insulin] 100 unit/mL Solution 20 unit SUBCUT BEDTIME Qty: 10 8RF insulin lispro [Humalog KwikPen Insulin] 100 unit/mL insulin pen See Rx Instructions .ROUTE .COMPLEX Qty: 15 5RF Rx Instructions: Low intensity sliding scale Continued Biktarvy 50-200-25 mg tablet 1 tab PO QAM omeprazole 40 mg capsule,delayed release(DR/EC) 40 mg PO QAM (DME) Fast Form cock up splint Qty: 1 0RF Rx Instructions: As directed atorvastatin 80 mg tablet 80 mg PO BEDTIME Tylenol Ex Str Rapid Release 500 mg Tablet 1,000 mg PO Q6H PRN (Reason: Pain) aspirin 81 mg tablet,chewable 81 mg PO QAM colchicine 0.6 mg tablet 0.6 mg PO . DIRECTED Stiolto Respimat 2.5-2.5 mcg/actuation mist 2 puff INHALATION BEDTIME Qty: 4 3RF Changed metformin 500 mg tablet extended release 24 hr 500 mg PO BIDWM Qty: 90 3RF Rx Instructions: not started as of 05/22/23 Discontinued clopidogrel 75 mg tablet 75 mg PO QAM amlodipine 10 mg tablet 10 mg PO QAM hydrochlorothiazide 25 mg tablet 25 mg PO QAM Discharge Orders: Discharge Order (Routine); Ordered 05/24/23 Ordered By: Gentry Avila Referrals: Hedy Lopez FNP [Primary Care Provider] - 05/26/23 9:00 am Patient Instructions: Opioid Safety Activity Restrictions/Additional Instructions: Low intensity sliding scale Blood sugar 70 to 130 mg/dL do not take any units 1 31-1 80 take 2 units 181-240 take 4 units 2 41-300 take 6 units 301-350 take 8 units 351-400 take 10 units Greater than 400 you can take 12 units Greater than 400 please call your doctor Your blood pressure has been low I have discontinued hydrochlorothiazide and amlodipine I have also discontinued Plavix Discharge Attestations Time Spent in Discharge Care*: greater than 30 min Quality Metrics Clinical Quality Measures [ No reported AMI, CVA or VTE this stay] Coding Level of Care Code Acute Code for Chg Fwd Diagnoses New onset of congestive heart failure I50.9 Hyperglycemia R73.9 GERD (gastroesophageal reflux disease) K21.9 Hypokalemia E87.6 Dehydration E86.0 New onset type 2 diabetes mellitus E11.9
[2023-05-24 12:18] LABS: Glucose Point of Care 211 mg/dL (70-110)
[2023-05-24 12:50] VITALS: BP 105/62; PULSE 68; RESP 18; TEMP 36.7; O2SAT 93
== END 2023-05-24 13:30 | disposition home or self-care (01) | DRG 637 ==
LOC: ER 13:53 → MEDSURG 15:24
PROVIDERS: Internal Medicine; Admitting Provider Internal Medicine; Emergency Provider Emergency Medicine; PCP Nurse Practitioner Family; Visit Provider Internal Medicine
DX: E11.65 Type 2 diabetes mellitus with hyperglycemia (principal); I50.31 Acute diastolic (congestive) heart failure; E87.1 Hypo-osmolality and hyponatremia; Z72.0 Tobacco use; E87.6 Hypokalemia; E86.0 Dehydration; E83.42 Hypomagnesemia; E83.39 Other disorders of phosphorus metabolism; R46.0 Very low level of personal hygiene
CPT/HCPCS: 36415; 36416; 36600; 71045; 80048; 80053; 82550; 82607; 82803; 82962; 83036; 83690; 83735; 83880; 84100; 84132; 84145; 84443; 85025; 86140; 93005; 93306; 94640; 96365; 96372; 96375; 99285; C9113; J1815; J1940; J2270; J3475

== ENCOUNTER 2025-03-20 09:54 | Outpatient (CLI) | payer MEDICAID, SELFPAY ==
--- NOTE | 2025-03-20 10:02 | CT_ITS ---
WS: [id number] LDCT LUNG CANCER SCREENING TECHNIQUE: Noncontrast CT of the chest with coronal and sagittal reformatted images. CLINICAL INFORMATION: NICOTINE DEPENDENCE CIGARETTES COMPARISON: None. DLP: 84.30 mGy.cm DIvol: Mean CTDIvol: 1.80 (mGy) All CT scans at [facility] use at least one of these dose optimization techniques: automated exposure control; mA and/or kV adjustment per patient size (includes targeted exams where dose is matched to clinical indication); or iterative reconstruction. FINDINGS: Moderate chronic emphysematous changes. Tiny micronodule in the lingula. 3 mm nodule LEFT upper lobe anteriorly. There are few bilateral scattered subcentimeter nodules and micronodules. Few tiny calcified granulomas. No suspicious pulmonary parenchymal abnormalities. Normal caliber thoracic aorta. Mild aortic calcification. Coronary calcification. No mediastinal or hilar lymphadenopathy. Small esophageal hiatal hernia. No axillary lymphadenopathy. Mild thoracic curve. Mild thoracic kyphosis. 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 Rec ommend further evaluation with CTA abdomen/pelvis LUNG-RADS: 2S-Benign Appearance or Behavior with Significant Findings FOLLOW UP: 12 Month: Continue annual screening with LDCT
== END 2025-03-20 09:55 | disposition home or self-care (01) ==
PROVIDERS: PCP Nurse Practitioner Family; Visit Provider Registered Nurse
DX: Z12.2 Encounter for screening for malignant neoplasm of respiratory organs (principal); J43.8 Other emphysema; I25.10 Atherosclerotic heart disease of native coronary artery without angina pectoris; I70.0 Atherosclerosis of aorta; K44.9 Diaphragmatic hernia without obstruction or gangrene; M40.04 Postural kyphosis, thoracic region; M40.204 Unspecified kyphosis, thoracic region; J98.6 Disorders of diaphragm
CPT/HCPCS: 71271